=== PATIENT | male | born 1990 | race Caucasian/White ===

== ENCOUNTER 2025-10-20 07:31 | Emergency (ER) | payer OTHER ==
[~2025-10-20] VITALS: Ht 177.8 cm; Wt 63.8 kg
[2025-10-20 08:04] LABS: BASOPHILS 0.3 % (0.2-1.2); EOSINOPHILS 0.6 % (0.8-7.0); LYMPHOCYTES 26.1 % (21.8-53.1); MCH 30.1 PG (25.7-32.2); MCHC 34.4 g/dL (32.3-36.5); MCV 87.3 fL (79.0-92.2); MONOCYTES 9.2 % (5.3-12.2); NEUTROPHILS 63.4 % (34.0-67.9); RBC 4.89 M/uL (4.63-6.08)
[2025-10-20] MEDS ORDERED: METHADONE10 MG/5 ML PO (08:17)
[2025-10-20 08:23] LABS: ALT (SGPT) 27.0 U/L (14-59); AST (SGOT) 16.0 U/L (15-37); GLOMERULAR FILTRATION RATE,EST 116.0 mL/min (>60); PROTEIN, TOTAL 7.7 g/dL (6.4-8.2); UREA NITROGEN 12.0 mg/dL (7-18)
[2025-10-20 09:54] VITALS: BP 149/90
--- NOTE | 2025-10-20 11:22 | EKG ---
[facility] [address] [place], [place] [address] Signed Sinus rhythm with frequent premature ventricular complexes Possible Left atrial enlargement Borderline ECG No previous ECGs available Confirmed by Scotty Ramos DO ([id number]) on 10/20/2025 11:21:58 AM Electronically Signed By: SCOTTY RAMOS DO 10/20/251121 PATIENT NAME: BEAR ECHAVARRIA Electrocardiogram DATE OF : 89 PHYSICIAN: SCOTTY RAMOS DO REPORT #: [id number] REPORT IS CONFIDENTIAL AND NOT TO BE RELEASED WITHOUT AUTHORIZATION
== END 2025-10-20 09:54 | disposition home or self-care (01) ==
LOC: ED 07:31
PROVIDERS: Emergency Medicine
DX: S22.20XA Unspecified fracture of sternum, initial encounter for closed fracture (principal); V89.2XXA Person injured in unspecified motor-vehicle accident, traffic, initial encounter; Z79.899 Other long term (current) drug therapy
CPT/HCPCS: 36415; 71260; 74177; 80053; 85025; 93005; 93010; 99284-25; Q9967